=== PATIENT | male | born 1995 | race Caucasian/White ===

== ENCOUNTER 2020-01-21 10:32 | Emergency (ER) | payer OTHER ==
[~2020-01-21] VITALS: Ht 188 cm; Wt 77.1 kg
[2020-01-21 10:38] VITALS: BP 140/79
--- NOTE | 2020-01-21 10:57 | NUR ---
RECEVIED A 24/M FROM TRIAGE FOR C/O ANXIETY. PT STATES "I WOKE UP AND FELT LIKE THERE WAS BLOOD FOLOWING FROM MY MOUTH BUT THERE WASN'T" PT DENIES DRUG/ALCOHOL USE. IN BED FOR MSE.
[2020-01-21 12:05] VITALS: BP 128/68
== END 2020-01-21 12:06 | disposition home or self-care (01) ==
LOC: MED 10:32
DX: R42 Dizziness and giddiness (principal); F17.210 Nicotine dependence, cigarettes, uncomplicated; Z71.6 Tobacco abuse counseling
CPT/HCPCS: 93005; 99283